=== PATIENT | female | born 1995 | race Caucasian/White ===

== ENCOUNTER 2024-02-01 11:52 | Emergency (ER) | payer MEDICAID ==
[~2024-02-01] VITALS: Ht 162.6 cm; Wt 94.3 kg
[2024-02-01 12:17] VITALS: BP 126/81; PULSE 92; RESP 18; TEMP 97.5; O2SAT 99
[2024-02-01] MEDS ORDERED: ALBU0.0912 IH (13:34)
[2024-02-01] MEDS ORDERED: BENZ200C4 PO (13:34)
[2024-02-01] MEDS ORDERED: PRON INH (13:40)
== END 2024-02-01 13:41 | disposition home or self-care (01) ==
LOC: MED 11:52
DX: J45.909 Unspecified asthma, uncomplicated (principal)
CPT/HCPCS: 71046; 81025; 99283